=== PATIENT | female | born 1940 | race Caucasian/White ===

== ENCOUNTER → 2020-04-07 | Outpatient (CLI) | payer MEDICARE, BC ==
--- NOTE | 2020-04-07 11:38 | KCIC ---
EXAM: Left wrist, 3 views. HISTORY: Fall. Pain. COMPARISON: None. FINDINGS: 3 views of the left wrist are obtained. No acute fracture is seen. 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 There is mild first carpometacarpal joint osteoarthritis. There is lucency within the mid aspect of the scaphoid likely due to a cyst. There is suspected slight chondrocalcinosis involving the triangular fibrocartilage complex. IMPRESSION: 1. No acute osseous finding. 2. Chronic nonunited ulnar styloid fracture. 3. Suspected cyst within the scaphoid waist. 3. Mild first carpometacarpal joint osteoarthritis. Electronically signed by: Carrie Logan MD (04/07/2020 11:35 AM) [id number]
== END ==
LOC: KCIC 10:04
PROVIDERS: ATTEND Nurse Practitioner
DX: S52.612A Displaced fracture of left ulna styloid process, initial encounter for closed fracture (principal); M18.12 Unilateral primary osteoarthritis of first carpometacarpal joint, left hand; X58.XXXA Exposure to other specified factors, initial encounter; Y93.89 Activity, other specified; Y92.89 Other specified places as the place of occurrence of the external cause; Y99.8 Other external cause status
CPT/HCPCS: 73110